=== PATIENT | female | born 1990 | race Caucasian/White ===

== ENCOUNTER 2019-07-09 22:00 | Emergency (ER) | payer OTHER ==
[~2019-07-09] VITALS: Ht 157.5 cm; Wt 77.1 kg
[~2019-07-09 22:00] MED LIST: DILANTIN100 MG PO; FLUOXETINE HCL20 MG PO; FOLIC ACID1 MG PO; IBUPROFEN400 MG; IBUPROFEN800 MG PO; KEFLEX500 MG PO; NICOTINE PATCH1 EA TD; NORCO 5-325 TA1 EACH PO; PHENYTOIN SODI300 MG PO
[2019-07-09] MEDS ORDERED: PHENYTOIN SODI100 MG PO (22:10)
[2019-07-09] MEDS ORDERED: VERAPAMIL HCL80 MG PO (22:10)
[2019-07-09] MEDS ORDERED: SERTRALINE HCL50 MG PO (22:11)
--- NOTE | 2019-07-10 15:37 | EKG ---
[facility] [address] [facility] [address] [facility] [address] [place], [place] [address] Signed Normal sinus rhythm Normal ECG When compared with ECG of 22-AUG-2016 09:39, No significant change was found Confirmed by PHUONG MAY MD ([id number] on 07/10/2019 3:37:16 PM Electronically Signed By: PHUONG MAY MD 07/10/19 1537 PATIENT NAME: JAMA HYDE Electrocardiogram DATE OF : 88 PHYSICIAN: PHUONG MAY MD REPORT #: [id number] REPORT IS CONFIDENTIAL AND NOT TO BE RELEASED WITHOUT AUTHORIZATION
== END 2019-07-10 00:47 | disposition home or self-care (01) ==
LOC: ED 22:00
DX: G40.909 Epilepsy, unspecified, not intractable, without status epilepticus (principal); R51 Headache; R89.2 Abnormal level of other drugs, medicaments and biological substances in specimens from other organs, systems and tissues; F17.200 Nicotine dependence, unspecified, uncomplicated; Z88.5 Allergy status to narcotic agent; Z79.899 Other long term (current) drug therapy
CPT/HCPCS: 80053; 80185; 84703; 85025; 93005; 93010; 96374; 96375; 99284-25; 99406; J1200; J1885; J2765

== ENCOUNTER 2021-06-23 22:56 | Emergency (ER) | payer OTHER ==
[~2021-06-23] VITALS: Ht 157.5 cm; Wt 77.1 kg
[~2021-06-23 22:56] MED LIST changes: +PHENYTOIN SODI100 MG PO; +SERTRALINE HCL50 MG PO; +VERAPAMIL HCL80 MG PO
== END 2021-06-24 01:15 | disposition home or self-care (01) ==
LOC: ED 22:56
DX: G40.909 Epilepsy, unspecified, not intractable, without status epilepticus (principal); G43.909 Migraine, unspecified, not intractable, without status migrainosus; F17.200 Nicotine dependence, unspecified, uncomplicated; Z88.5 Allergy status to narcotic agent; Z79.899 Other long term (current) drug therapy
CPT/HCPCS: 80053; 80185; 84703; 85025; 99284

== ENCOUNTER 2021-12-03 17:58 | Emergency (ER) | payer OTHER ==
[~2021-12-03] VITALS: Ht 157.5 cm; Wt 77.1 kg
[2021-12-03] MEDS ORDERED: LEVETIRACETAM500 M1 PO (18:31)
[2021-12-03] MEDS ORDERED: ONDANSETRON ODT4 MG PO (18:33)
[2021-12-03] MEDS ORDERED: RIZATRIPTAN5 MG PO (18:33)
== END 2021-12-03 19:34 | disposition home or self-care (01) ==
LOC: ED 17:58
DX: G40.909 Epilepsy, unspecified, not intractable, without status epilepticus (principal); G43.909 Migraine, unspecified, not intractable, without status migrainosus; F17.200 Nicotine dependence, unspecified, uncomplicated; Z88.5 Allergy status to narcotic agent; Z79.899 Other long term (current) drug therapy
CPT/HCPCS: 99284

== ENCOUNTER 2022-05-21 20:03 | Emergency (ER) | payer OTHER ==
[~2022-05-21] VITALS: Ht 157.5 cm; Wt 77.1 kg
[~2022-05-21 20:03] MED LIST changes: +LEVETIRACETAM500 M1 PO; +ONDANSETRON ODT4 MG PO; +RIZATRIPTAN5 MG PO
[2022-07-13] MEDS ORDERED: DILANTIN100 MG PO (22:36)
== END 2022-05-21 22:10 | disposition home or self-care (01) ==
LOC: ED 20:03
DX: R56.9 Unspecified convulsions (principal); G43.909 Migraine, unspecified, not intractable, without status migrainosus; F17.200 Nicotine dependence, unspecified, uncomplicated; Z88.5 Allergy status to narcotic agent; Z79.899 Other long term (current) drug therapy
CPT/HCPCS: 36415; 80048; 80185; 85025; 96365; 96375; 99284-25; J2060; J7030; Q2009

== ENCOUNTER 2022-05-28 21:23 | Emergency (ER) | payer OTHER ==
[~2022-05-28] VITALS: Ht 157.5 cm; Wt 77.0 kg
--- OUTSIDE RECORDS SUMMARY | 2022-05-28 21:30 | XMS ---
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 Marky has no Care Guidelines for this patient. Micaela VISIT COUNT (12 MO.) 4 [facility]3]Rafael Capo H. TOTAL 4 NOTE: Visits indicate total known visits. [place]12 MO.) 05/28/2022 21:23 [facility] [place] TYPE: Emergency COMPLAINT: - LACERATION LT KNEE 05/21/2022 20:03 [facility]o [facility] [place] TYPE: Emergency COMPLAINT: - SEIZURE DIAGNOSES: - Nicotine dependence, unspecified, uncomplicated - Unspecified convulsions - Other nursing home (current) drug therapy - Migraine, unspecified, not intractable, without status migrainosus - Allergy status to narcotic agent 12/03/2021 17:59 [facility] Rafael Capo [place] TYPE: Emergency COMPLAINT: - SEIZURE DIAGNOSES: - Other nursing home (current) drug therapy - Migraine, unspecified, not intractable, without status migrainosus - Allergy status to narcotic agent - Epilepsy, unspecified, not intractable, without status epilepticus - Unspecified convulsions - Nicotine dependence, unspecified, uncomplicated 06/23/2021 22:57 [facility] Rafael [facility]o [facility] [place] TYPE: Emergency COMPLAINT: - SEIZURE DIAGNOSES: - Unspecified convulsions - Epilepsy, unspecified, not intractable, without status epilepticus - Nicotine dependence, unspecified, uncomplicated - Other nursing home (current) drug therapy - Migraine, unspecified, not intractable, without status migrainosus - Allergy status to narcotic agent INPATIENT VISIT TRACKING (12 MO.) No inpatient visits to display in this time frame [email or web address]
== END 2022-05-28 22:35 | disposition home or self-care (01) ==
LOC: ED 21:23
DX: S71.112A Laceration without foreign body, left thigh, initial encounter (principal); F17.200 Nicotine dependence, unspecified, uncomplicated; W45.8XXA Other foreign body or object entering through skin, initial encounter; Z79.899 Other long term (current) drug therapy; Z88.5 Allergy status to narcotic agent
CPT/HCPCS: 90471; 90714; 99282-25

== ENCOUNTER 2022-09-30 17:07 | Emergency (ER) | payer OTHER ==
[~2022-09-30] VITALS: Ht 157.5 cm; Wt 77.1 kg
--- OUTSIDE RECORDS SUMMARY | 2022-09-30 17:14 | XMS ---
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 Marky has no Care Guidelines for this patient. Micaela VISIT COUNT (12 MO.) [address] [facility] [address] [place] [place] TOTAL 6 NOTE: Visits indicate total known visits. ED/C VISIT TRACKING (12 MO.) 09/30/2022 17:07 [facility] [place] TYPE: Emergency COMPLAINT: - DIZZINESS 09/29/2022 18:14 [facility] [place] TYPE: Emergency COMPLAINT: - DIZZINESS 07/13/2022 22:34 [facility] [place] [facility] [place] TYPE: Emergency COMPLAINT: - SEIZURE DIAGNOSES: - Nicotine dependence, unspecified, uncomplicated - Epilepsy, unspecified, not intractable, without status epilepticus - Allergy status to analgesic agent 05/28/2022 21:23 [facility] [place] [facility] [place] TYPE: Emergency COMPLAINT: - LACERATION LT KNEE DIAGNOSES: - Other watermaster (current) drug therapy - Nicotine dependence, unspecified, uncomplicated - Laceration without foreign body, left thigh, initial encounter - Other foreign body or object entering through skin, initial encounter - Laceration without foreign body, left knee, initial encounter - Allergy status to narcotic agent 05/21/2022 20:03 [facility] [place] TYPE: Emergency COMPLAINT: - SEIZURE DIAGNOSES: - Other watermaster (current) drug therapy - Nicotine dependence, unspecified, uncomplicated - Migraine, unspecified, not intractable, without status migrainosus - Unspecified convulsions - Allergy status to narcotic agent 12/03/2021 17:59 [facility] [place] TYPE: Emergency COMPLAINT: - SEIZURE DIAGNOSES: - Allergy status to narcotic agent - Other watermaster (current) drug therapy - Nicotine dependence, unspecified, uncomplicated - Epilepsy, unspecified, not intractable, without status epilepticus - Migraine, unspecified, not intractable, without status migrainosus - Unspecified convulsions INPATIENT VISIT TRACKING (12 MO.) No inpatient visits to display in this time frame [email or web address]
[2022-09-30] MEDS ORDERED: MECLIZINE HCL25 MG PO (21:47)
== END 2022-09-30 22:04 | disposition home or self-care (01) ==
LOC: ED 17:07
DX: H81.10 Benign paroxysmal vertigo, unspecified ear (principal); Z20.822 Contact with and (suspected) exposure to COVID-19; G43.909 Migraine, unspecified, not intractable, without status migrainosus; F17.200 Nicotine dependence, unspecified, uncomplicated; Z88.5 Allergy status to narcotic agent; Z79.899 Other long term (current) drug therapy
CPT/HCPCS: 36415; 71045; 80053; 80185; 83605; 85025; 87502; 96374; 96375; 99284-25; A9270; C9803; J2060; J2405; J7030; U0003